=== PATIENT | female | born 1980 | race Hispanic/Latino ===

== ENCOUNTER 2018-12-07 18:36 | Emergency (ER) | payer SELFPAY ==
[~2018-12-07] VITALS: Ht 154.9 cm; Wt 93.0 kg
[2018-12-07] MEDS ORDERED: HYDROCODONE/APAP 10MG-325MG TAB PO NR (19:00)
[2018-12-07 19:27] LABS: CLARITY,URINE SL CLOUDY (CLEAR); COLOR,URINE YELLOW (YELLOW); KETONES,URINE NEGATIVE (NEGATIVE); LEUKOCYTE ESTERASE ,URINE NEGATIVE (NEGATIVE); NITRITE,URINE NEGATIVE (NEGATIVE); PROTEIN,URINE DIPSTICK NEGATIVE (NEGATIVE)
[2018-12-07 19:28] LABS: BILIRUBIN,URINE NEGATIVE (NEGATIVE); PREGNANCY TEST, URINE NEGATIVE (NEGATIVE); URINE UROBILINOGEN 0.2 mg/dL (0.2 - 1)
[2018-12-07 19:39] LABS: BACTERIA,URINE FEW /HPF; EPITHELIAL CELLS,URINE MODERATE /LPF
--- NOTE | 2018-12-07 19:53 | NUR ---
PT OUT OF LOBBY FOR DIAGNOSTIC TEST
[2018-12-07 21:04] LABS: BASOPHILS # (AUTO) 0.1 (0.0-0.1); BASOPHILS % 1.2 % (0.0-1.0); EOSINOPHILS # (AUTO) 0.7 (0.0-0.4); EOSINOPHILS % 8.3 % (0.0-6.0); HEMATOCRIT 40.6 % (34.2-44.1); HEMOGLOBIN 13.6 g/dL (12.0-16.0); LYMPHOCYTES # (AUTO) 3.5 (1.0-3.2); LYMPHOCYTES % 43.3 % (18.0-39.1); MEAN CORPUSCULAR HEMOGLOBIN 34.6 pg (28-32); MEAN CORPUSCULAR HGB CONC 33.5 g/dL (31-35); MEAN CORPUSCULAR VOLUME 103.3 fL (81-99); MONOCYTES # (AUTO) 0.4 (0.2-0.8); MONOCYTES % 5.2 % (4.4-11.3); NEUTROPHILS # (AUTO) 3.4 (2.1-6.9); NEUTROPHILS % 41.8 % (38.7-80.0); PLATELET COUNT 350 x10e3/uL (140-360); RED BLOOD COUNT 3.93 x10e6/uL (3.6-5.1); RED CELL DISTRIBUTION WIDTH 12.3 % (11.7-14.4)
[2018-12-07 21:24] LABS: ALANINE AMINOTRANSFERASE 31 IU/L (0-55); ALBUMIN/GLOBULIN RATIO 1.2 (0.8-2.0); ALKALINE PHOSPHATASE 130 IU/L (40-150); ANION GAP 10.9 mmol/L (8-16); BLOOD UREA NITROGEN 8 mg/dL (7-26); BUN/CREATININE RATIO 11 (6-25); CALCIUM 9.3 mg/dL (8.4-10.2); CARBON DIOXIDE 27 mmol/L (22-29); CHLORIDE 103 mmol/L (98-107); EST GLOMERULAR FILTRATION RATE > 60 ML/MIN (60-); GLUCOSE 101 mg/dL (74-118); POTASSIUM 3.9 mmol/L (3.5-5.1); SODIUM 137 mmol/L (136-145)
--- NOTE | 2018-12-07 21:26 | Diagnostic Imaging Report ---
Transvaginal and transabdominal ultrasound Indication: , pain Technique: Transabdominal ultrasound performed for global evaluation of the uterus. Transvaginal ultrasound performed for detailed evaluation of the endometrium and ovaries. Selected images provided for review. Comparison: None Findings: LMP: 11/27/2017 Study is compromised due to bowel gas. Transabdominally the uterus measures approximately 2.2 x 3.9 x 5.7 cm. The bladder collapsed . Transvaginally, the uterus is retroverted in position. Myometrial echotexture is normal. The endometrial stripe measures 0.8 cm, is linear and echogenic and is normal. The fundal endometrium is distended with fluid. No evidence of yolk sac or embryo. The cervix is normal. No free fluid in the cul de sac. Right ovary is not visualized. Left ovary measures approximately 1.6 x 2.7 x 3.4 cm. The echotexture is normal. No mass. IMPRESSION: No conclusive evidence of intrauterine . Nonvisualization of the right ovary. Ectopic cannot be excluded. Recommend serial beta hCGs and ultrasounds over the next 3-5 days to establish trend. No pelvic ascites. Signed by: Dr. Eugene Hodges MD on 12/07/2018 9:23 PM
--- NOTE | 2018-12-07 22:41 | Diagnostic Imaging Report ---
CT Abdomen And Pelvis Without IV Contrast INDICATION: Lower abdominal pain radiating to back TECHNIQUE: 5 mm collimation axial images obtained from the diaphragm to the level of the pubic symphysis without nonionic intravenous contrast. Oral contrast was administered. RADIATION DOSE: Total DLP: 766.8 mGy*cm Estimated effective dose: (DLP x 0.015 x size factor) mSv CTDIvol has been reviewed. It is below the limits set by the Radiation Protocol Committee (RPC). Dose reduction techniques used: Automated exposure control, adjustment of the mAs and/or kVp according to patient size, standardized low-dose protocol, and/or iterative reconstruction technique. COMPARISON: Pelvic ultrasound performed at 2123 hours. ABDOMEN FINDINGS: Lung Bases: Clear. Visualized portion of the mediastinum is normal. Liver: Normal in attenuation without mass. Gallbladder: Absent. No ductal dilatation. Pancreas: Diffuse fatty atrophy without mass or ductal dilatation. No peripancreatic inflammation or pancreas calcifications. Spleen: Normal. Adrenal Glands: No evidence for mass. Kidneys: Right Kidney: No renal calculus. No cortical mass or hydronephrosis. Left Kidney: No renal calculus. No cortical mass or hydronephrosis. Lymph Nodes: No enlarged abdominal or retroperitoneal lymph nodes. Aorta: Normal in diameter. There are trace calcifications in the right iliac artery PELVIS FINDINGS: Bowel: Stomach: Contains enteric contrast and is normal. Small Bowel: Contains enteric contrast and is normal in diameter with normal wall thickness. Large Bowel: Normal in caliber with normal wall thickness. Mild burden of diverticulosis involving the sigmoid colon. No associated inflammation Appendix: Present and is normal. Bladder: Under distended but otherwise normal. The uterus is present and normal in morphology. No adnexal mass. Lymph Nodes: No enlarged mesenteric, pelvic, or inguinal lymph nodes. Peritoneum/retroperitoneum: No free fluid or fluid collection. Bones: Trace degenerative changes of the lower lumbar spine. No compression deformities. No destructive lesions. Soft tissues: Unremarkable. IMPRESSION: 1. Mild burden of diverticulosis coli. No CT evidence of acute diverticulitis. No evidence for bowel obstruction or inflammation. Normal appendix. 2. Cholecystectomy. No biliary ductal dilatation. Signed by: Dr. Eugene Hodges MD on 12/07/2018 10:38 PM
[2018-12-07 23:54] VITALS: BP 123/95
== END 2018-12-07 23:55 | disposition home or self-care (01) ==
LOC: ER 18:36
DX: R10.31 Right lower quadrant pain (principal); R10.32 Left lower quadrant pain; R11.2 Nausea with vomiting, unspecified; E11.9 Type 2 diabetes mellitus without complications
CPT/HCPCS: 36415; 74176; 76830; 76856; 80053; 81001; 81025; 84702; 85025; 87086; 99284

== ENCOUNTER 2019-05-28 12:56 | Emergency (ER) | payer SELFPAY ==
[~2019-05-28] VITALS: Ht 154.9 cm; Wt 93.0 kg
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
[2019-05-28] MEDS ORDERED: SODIUM CHLORIDE 0.9% 1000ML 1,000 ML IV STA (13:07)
[2019-05-28 13:17] LABS: BASOPHILS # (AUTO) 0.1 (0.0-0.1); BASOPHILS % 0.4 % (0.0-1.0); HEMATOCRIT 41.3 % (34.2-44.1); HEMOGLOBIN 14.6 g/dL (12.0-16.0); LYMPHOCYTES # (AUTO) 2.5 (1.0-3.2); LYMPHOCYTES % 17.7 % (18.0-39.1); MEAN CORPUSCULAR HEMOGLOBIN 34.7 pg (28-32); MEAN CORPUSCULAR HGB CONC 35.4 g/dL (31-35); MEAN CORPUSCULAR VOLUME 98.1 fL (81-99); MONOCYTES # (AUTO) 0.8 (0.2-0.8); MONOCYTES % 5.9 % (4.4-11.3); NEUTROPHILS # (AUTO) 10.7 (2.1-6.9); NEUTROPHILS % 75.6 % (38.7-80.0); PLATELET COUNT 360 x10e3/uL (140-360); RED BLOOD COUNT 4.21 x10e6/uL (3.6-5.1); RED CELL DISTRIBUTION WIDTH 11.9 % (11.7-14.4)
[2019-05-28 13:19] LABS: BILIRUBIN,URINE SMALL (NEGATIVE); CLARITY,URINE SL CLOUDY (CLEAR); COLOR,URINE YELLOW (YELLOW); KETONES,URINE TRACE (NEGATIVE); LEUKOCYTE ESTERASE ,URINE NEGATIVE (NEGATIVE); NITRITE,URINE NEGATIVE (NEGATIVE); PROTEIN,URINE DIPSTICK TRACE (NEGATIVE); URINE UROBILINOGEN 0.2 mg/dL (0.2 - 1)
[2019-05-28 13:21] LABS: PREGNANCY TEST, URINE NEGATIVE (NEGATIVE)
[2019-05-28 13:22] LABS: PROTHROMBIN TIME 13.7 seconds (11.9-14.5)
[2019-05-28 13:26] LABS: AMPHETAMINES SCREEN,URINE NEGATIVE (NEGATIVE); BENZODIAZEPINES SCREEN,URINE NEGATIVE (NEGATIVE); PHENCYCLIDINE SCREEN,URINE NEGATIVE (NEGATIVE)
[2019-05-28 13:27] LABS: BACTERIA,URINE FEW /HPF; EPITHELIAL CELLS,URINE MODERATE /LPF; RBC,URINE 0-5 /HPF (0-5)
[2019-05-28 13:31] LABS: ACETAMINOPHEN < 3 ug/mL (10-30); SALICYLATE < 5.0 mg/dL (0-30)
[2019-05-28 13:32] LABS: ALANINE AMINOTRANSFERASE 74 IU/L (0-55); ALBUMIN 4.6 g/dL (3.5-5.0); ALBUMIN/GLOBULIN RATIO 1.3 (0.8-2.0); ALKALINE PHOSPHATASE 127 IU/L (40-150); ANION GAP 18.9 mmol/L (8-16); BLOOD UREA NITROGEN 9 mg/dL (7-26); BUN/CREATININE RATIO 11 (6-25); CALCIUM 9.4 mg/dL (8.4-10.2); CARBON DIOXIDE 22 mmol/L (22-29); CHLORIDE 101 mmol/L (98-107); CREATININE, SERUM 0.84 mg/dL (0.57-1.11); EST GLOMERULAR FILTRATION RATE > 60 ML/MIN (60-); GLUCOSE 97 mg/dL (74-118); MAGNESIUM 2.6 MG/DL (1.3-2.1); SODIUM 139 mmol/L (136-145)
[2019-05-28 13:45] LABS: POTASSIUM 2.9 mmol/L (3.5-5.1)
[2019-05-28 13:51] LABS: THYROID STIMULATING HORMONE 1.296 uIU/mL (0.350-4.940)
[2019-05-28] MEDS ORDERED: POTASSIUM CHLORIDE 20 MEQ TAB CR PO NR (14:00)
[2019-05-28 14:26] VITALS: BP 142/91
== END 2019-05-28 14:42 | disposition home or self-care (01) ==
LOC: ER 12:56
DX: F41.1 Generalized anxiety disorder (principal); M54.9 Dorsalgia, unspecified; G89.29 Other chronic pain; E11.9 Type 2 diabetes mellitus without complications; F17.210 Nicotine dependence, cigarettes, uncomplicated
CPT/HCPCS: 36415; 80053; 80307; 80320; 80329 ×2; 81001; 81025; 83735; 84443; 85025; 85610; 87086; 99283; J7030

== ENCOUNTER 2019-07-08 12:44 | Emergency (ER) | payer SELFPAY ==
[~2019-07-08] VITALS: Ht 154.9 cm; Wt 93.0 kg
[2019-07-08 14:34] LABS: BILIRUBIN,URINE NEGATIVE (NEGATIVE); CLARITY,URINE SL CLOUDY (CLEAR); COLOR,URINE YELLOW (YELLOW); KETONES,URINE NEGATIVE (NEGATIVE); LEUKOCYTE ESTERASE ,URINE NEGATIVE (NEGATIVE); NITRITE,URINE NEGATIVE (NEGATIVE); PROTEIN,URINE DIPSTICK NEGATIVE (NEGATIVE); URINE UROBILINOGEN 0.2 mg/dL (0.2 - 1)
[2019-07-08 14:49] LABS: AMORPHOUS SEDIMENT,URINE FEW (FEW); EPITHELIAL CELLS,URINE FEW /LPF
--- NOTE | 2019-07-08 15:48 | Diagnostic Imaging Report ---
CT of the abdomen and pelvis, without contrast, 07/08/2019. History: Bilateral back pain. Comparison: 12/07/2018. Technique: Multidetector CT scanning of the abdomen and pelvis was performed from the level of the lung bases to the inferior pubic rami without intravenous or oral contrast. Coronal and sagittal multiplanar reformations were obtained. RADIATION DOSE: Total DLP: 724 mGy*cm Dose modulation, iterative reconstruction, and/or weight based adjustment of the mA/kV was utilized to reduce the radiation dose to as low as reasonably achievable. Discussion: Examination is limited without contrast. Lung bases: No visualized abnormalities. Abdomen: Cholecystectomy clips are present. The liver, biliary tree, spleen, pancreas, adrenal glands, and kidneys are unremarkable. There is no evidence of nephrolithiasis or perinephric fat stranding. The abdominal aorta is within normal limits. There is no bowel dilatation. Suture material is present within the left side of small bowel. The appendix is visualized and is normal. Scattered diverticula are present within the sigmoid colon without evidence of adjacent inflammation. There is no evidence of adenopathy or free fluid. Pelvis: The bladder, uterus, and adnexa are unremarkable. There is no evidence of free fluid or adenopathy. Bones and soft tissues: Mild degenerative changes are present throughout the lumbar spine without evidence of lytic or sclerotic lesion. IMPRESSION: 1. Mild colonic diverticulosis without evidence of diverticulitis. 2. Status post cholecystectomy. Otherwise unremarkable noncontrast exam. No evidence of nephrolithiasis, appendicitis, or bowel obstruction. Signed by: Fam Murphy on 07/08/2019 3:44 PM
[2019-07-08] MEDS ORDERED: TYLENOL WITH C1 EACH PO (18:10)
[2019-07-08] MEDS ORDERED: CYCLOBENZAPRINE5 MG PO (18:10)
== END 2019-07-08 18:27 | disposition home or self-care (01) ==
LOC: ER 12:44
DX: S39.012A Strain of muscle, fascia and tendon of lower back, initial encounter (principal); E11.9 Type 2 diabetes mellitus without complications; K57.90 Diverticulosis of intestine, part unspecified, without perforation or abscess without bleeding; F41.9 Anxiety disorder, unspecified; F43.10 Post-traumatic stress disorder, unspecified
CPT/HCPCS: 74176; 81001; 99283

== ENCOUNTER 2019-11-19 19:45 | Emergency (ER) | payer SELFPAY ==
[~2019-11-19] VITALS: Ht 154.9 cm; Wt 93.0 kg
[~2019-11-19 19:45] MED LIST: CYCLOBENZAPRINE5 MG PO; TYLENOL WITH C1 EACH PO
[2019-11-19] MEDS ORDERED: HYDROCODONE/APAP 7.5MG-325MG 1 EA TAB PO PRN (20:30)
[2019-11-19] MEDS ORDERED: KETOROLAC TROMETHAMINE 60 MG/2 ML VIAL IM ONE (20:30)
[2019-11-19] MEDS ORDERED: CYCLOBENZAPRINE HCL 10 MG TAB PO ONE (20:30)
== END 2019-11-19 21:29 | disposition home or self-care (01) ==
LOC: ER 19:45
DX: R07.89 Other chest pain (principal); E11.9 Type 2 diabetes mellitus without complications; F41.9 Anxiety disorder, unspecified; F32.9 Major depressive disorder, single episode, unspecified; Z91.041 Radiographic dye allergy status; Z91.013 Allergy to seafood
CPT/HCPCS: 93005; 99283; J1885